=== PATIENT | female | born 1945 | race Caucasian/White ===

== ENCOUNTER 2020-05-02 10:42 | Outpatient (CLI) | payer MEDICARE, OTHER, SELFPAY ==
--- NOTE | 2020-05-02 10:50 | MM_ITS ---
WS: [id number] BILATERAL DIGITAL SCREENING MAMMOGRAPHY WITH CAD CLINICAL INFORMATION: SCREENING HISTORY: Screening mammogram. No current complaints. COMPARISON: TECHNIQUE: Bilateral CC and MLO views. FINDINGS: The breasts are composed of heterogeneous fibroglandular density tissue, which can limit the detectio n of small underlying mass lesions. 6 mm asymmetric density mid depth right breast best seen on the c c view. Vascular calcification RECOMMEND FURTHER EVALUATION WITH RIGHT DIAGNOSTIC MAMMOGRAPHY SPOT COMPRESSION VIEWS AND ULTRASOUND. Unchanged left breast. MM/[id number] IMPRESSION: BI-RADS: 0-Incomplete: Need additional imaging evaluation FOLLOW UP: Need Additional Imaging
== END 2020-05-02 10:43 | disposition home or self-care (01) ==
LOC: RADSHAW 10:48
PROVIDERS: PCP Family Medicine; Visit Provider Family Medicine
DX: Z12.31 Encounter for screening mammogram for malignant neoplasm of breast (principal); N64.89 Other specified disorders of breast
CPT/HCPCS: 77067

== ENCOUNTER 2022-04-01 10:06 | Outpatient (CLI) | payer MEDICARE, OTHER, SELFPAY ==
--- NOTE | 2022-04-01 10:17 | MM_ITS ---
WS: [id number] BILATERAL SCREENING DIGITAL BREAST TOMOSYNTHESIS MAMMOGRAM WITH CAD HISTORY: SCREENING COMPARISON: 05/02/2020 and 04/27/2019 Bilateral CC and MLO views with tomosynthesis and synthetic mammography submitted. Computer aided det ection analyzed. Breast composition: The breasts are heterogeneously dense, which may obscure small masses. No suspici ous masses, microcalcifications or architectural distortion. MM/[id number] IMPRESSION: BI-RADS: 1-Negative FOLLOW UP: 1 Year Follow-up
== END 2022-04-01 10:07 | disposition home or self-care (01) ==
LOC: RAD 10:11
PROVIDERS: PCP Family Medicine; Visit Provider Family Medicine
DX: Z12.31 Encounter for screening mammogram for malignant neoplasm of breast (principal)
CPT/HCPCS: 77063; 77067

== ENCOUNTER → 2022-05-30 10:38 | Outpatient (BNVA) | payer MEDICARE, OTHER, SELFPAY | PROVIDERS: PCP Family Medicine; Visit Provider Family Medicine | DX: Z00.00 Encounter for general adult medical examination without abnormal findings (principal); I11.0 Hypertensive heart disease with heart failure; I50.9 Heart failure, unspecified | CPT/HCPCS: 80053; 80061; 83880 ==

== ENCOUNTER → 2023-08-13 09:39 | Outpatient (BNVA) | payer MEDICARE, OTHER, SELFPAY | PROVIDERS: PCP Family Medicine; Visit Provider Family Medicine | DX: Z00.00 Encounter for general adult medical examination without abnormal findings (principal); I10 Essential (primary) hypertension; I50.9 Heart failure, unspecified; M19.90 Unspecified osteoarthritis, unspecified site | CPT/HCPCS: 80053; 80061; 83880; 85025 ==

== ENCOUNTER 2023-09-04 13:39 | Outpatient (CLI) | payer MEDICARE, OTHER, SELFPAY ==
--- NOTE | 2023-09-04 13:58 | MM_ITS ---
WS: [id number] Bilateral screening 3D tomosynthesis digital mammogram, 09/04/2023 Clinical Data: SCREENING Comparison: 04/01/2022, 05/02/2020, 04/27/2019, 04/20/2018, 04/07/2017, 03/11/2016, 02/24/2015, 01/17/2014, 12/15, 11/08/2011, 09/18/2010, 09/11/2009, 07/26/2008, 05/11/2007. Findings: The breast parenchymal pattern shows heterogeneous density. No spiculated masses or clustered calcifi cations are seen. There are no secondary signs of carcinoma. There are small vascular calcifications. Impression: 1. Negative bilateral mammogram unchanged. 2. Recommend annual screening mammograms. MM/[id number] BIRADS: 1-Negative FOLLOW UP: 1 Year Follow-up The CAD cashier or checker stock clerk was used.
--- NOTE | 2023-09-04 14:30 | XR_ITS ---
WS: [id number] DEXA (DUAL ENERGY X-RAY ABSORPTIOMETRY) Bone mineral density was performed using a [employer] machine. HISTORY: screening COMPARISON: 04/27/2019 Lumbar spine BMD (L1-L4): 1.247 g/cm2 T score: 0.6 Z score: 2.3 Total hip BMD: Left: 1.009 g/cm2. T score: 0.0 Z score: 1.9 Right: 1.038 g/cm2. T score: 0.2 Z score: 2.2 10 year probability of a major osteoporotic fracture is 10.3%. Compared to the prior study from 04/27/2019. Lumbar spine bone mineral density has increased by 1.2%. Bilateral hips bone mineral density has decreased by 2.9%. IMPRESSION: NORMAL BONE MINERAL DENSITY based upon the WHO classification for females. Significant decrease in bone mineral density within the hips since the prior study.
== END 2023-09-04 13:40 | disposition home or self-care (01) ==
LOC: RAD 13:39
PROVIDERS: PCP Family Medicine; Visit Provider Family Medicine
DX: Z12.31 Encounter for screening mammogram for malignant neoplasm of breast
CPT/HCPCS: 77063; 77067; 77080

== ENCOUNTER → 2024-02-19 11:49 | Outpatient (BNVA) | payer MEDICARE, OTHER, SELFPAY | PROVIDERS: PCP Family Medicine; Visit Provider Family Medicine | DX: R30.0 Dysuria (principal) | CPT/HCPCS: 81000; 87077; 87086; 87184 ==

== ENCOUNTER → 2025-03-09 12:07 | Outpatient (BNVA) | payer MEDICARE, OTHER, SELFPAY | PROVIDERS: PCP Family Medicine; Visit Provider Family Medicine | DX: I50.9 Heart failure, unspecified (principal); R39.15 Urgency of urination; I10 Essential (primary) hypertension; M19.90 Unspecified osteoarthritis, unspecified site | CPT/HCPCS: 80053; 80061; 81000; 85025 ==

== ENCOUNTER 2025-04-19 10:55 | Outpatient (CLI) | payer MEDICARE, OTHER, SELFPAY ==
--- NOTE | 2025-04-19 11:15 | USCV_ITS ---
Tabatha Medina Age: 80 Gender: F : 1945 Exam Date: 04/19/2025 11:18 Ordering Phys: Terrance France MD Technologist: HANDY [place] [facility] [place]: CHF BP: 124 / 80 HR: 85 Rhythm: Sinus Technical Quality: Adequate MEASUREMENTS (Male / Female) Normal Values 2D ECHO LV Diastolic Diameter PLAX 4.3 cm 4.2 - 5.9 / 3.9 - 5.3 cm IVS Diastolic Thickness 0.9 cm 0.6 - 1.0 / 0.6 - 0.9 cm IVS Systolic Thickness 1.3 cm LVPW Diastolic Thickness 1.3 cm 0.6 - 1.0 / 0.6 - 0.9 cm LVPW Systolic Thickness 1.5 cm LVOT Diameter 1.9 cm LV Ejection Fraction 2D Teich 55.6 % LV Ejection Fraction MOD 4C 58.0 % LV Ejection Fraction MOD 2C 48.9 % LV Ejection Fraction 2C AL 46.5 % LA Diameter 3.9 cm RA Systolic Volume 4C AL 64.1 ml RA Systolic Volume 4C MOD 62.1 ml LA Sys Volume AL 58.2 cm cubed LA Sys Volume Index AL 32.7 cm cubed/m squared Aorta at Sinotubular Diameter 2.8 cm M-MODE LA Ao Ratio MM 1.7 AV Cusp Separation MM 1.4 cm DOPPLER AV Peak Velocity 115.0 cm/s LVOT Peak Velocity 72.0 cm/s AV Area Cont Eq vti 1.5 cm squared AV Area Cont Eq pk 1.9 cm squared MV Peak Velocity 96.0 cm/s MV Area PHT 4.7 cm squared Mitral E to A Ratio 2.1 TV Peak Velocity 209.5 cm/s TR Peak Velocity 229.0 cm/s TR Peak Gradient 21.0 mmHg TV Peak E Velocity 74.0 cm/s PV Peak Velocity 75.0 cm/s FINDINGS Left Ventricle Normal left ventricular size, systolic function and wall thickness, with no regional wall motion abnormalities. Left ventricular ejection fraction is estimated at 55 %. Grade I/IV diastolic dysfunction (abnormal relaxation filling pattern), normal to mildly elevated filling pressures. Grade II/IV diastolic dysfunction, moderately elevated filling pressures. Right Ventricle The right ventricle is normal in size and function. Right Atrium Moderately increased right atrial size. Left Atrium Moderately increased left atrial size. Mitral Valve Structurally normal mitral valve without significant stenosis or prolapse. There is no mitral regurgitation. Aortic Valve Structurally normal aortic valve without significant sclerosis or stenosis. There is no aortic regurgitation. Tricuspid Valve Mild tricuspid valve regurgitation. Pulmonic Valve Structurally normal pulmonic valve without significant stenosis. There is no pulmonic regurgitation. Pericardium Normal pericardium without effusion. Aorta Normal ascending aorta dimension. IVC The inferior vena cava appears normal. CONCLUSIONS Normal left ventricular size, systolic function and wall thickness, with no regional wall motion abnormalities. Left ventricular ejection fraction is estimated at 55 %. Grade I/IV diastolic dysfunction (abnormal relaxation filling pattern), normal to mildly elevated filling pressures. Grade II/IV diastolic dysfunction, moderately elevated filling pressures. Moderately increased left atrial size. Moderately increased right atrial size. Structurally normal mitral valve without significant stenosis or prolapse. There is no mitral regurgitation. There is no pericardial effusion. Right atrial pressure is around 5 mm of mercury. Tianna Paul MD (Electronically Signed) Final Date: 26 April 2025 12:02 S
== END 2025-04-19 10:56 | disposition home or self-care (01) ==
LOC: RAD 10:56
PROVIDERS: PCP Family Medicine; Visit Provider Family Medicine
DX: I50.9 Heart failure, unspecified (principal); R93.1 Abnormal findings on diagnostic imaging of heart and coronary circulation; I07.1 Rheumatic tricuspid insufficiency
CPT/HCPCS: 93306